=== PATIENT | female | born 2000 | race Caucasian/White ===

== ENCOUNTER 2018-07-05 07:57 | Emergency (ER) | payer BC ==
[2018-07-05] MEDS ORDERED: KETOROLAC 30 MG/ML INJ ONE (08:31)
[2018-07-05] MEDS ORDERED: DEXAMETHASONE 10 MG/ML VIAL ONE (08:31)
[2018-07-05] MEDS ORDERED: NA CHLORIDE 0.9% 1,000 ML ONE (08:32)
[2018-07-05] MEDS ORDERED: ONDANSETRON 4 MG/2 ML VIAL ONE (08:43)
--- NOTE | 2018-07-05 10:06 | ER ---
Nurse's Notes [facility] Name: Fe Kramer Age: 18 yrs Sex: Female : 2000 Arrival Date: 07/05/2018 Time: 08:01 Bed 19 Private MD: Diagnosis: Infectious mononucleosis;Dehydration Presentation: 07/05 08:09 Presenting complaint: Patient states: presenting with throat pain and right sided pc1 abdominal pain. Transition of care: patient was not received from another setting of care. Onset of symptoms was June 27, 2018. Risk Assessment: Do you want to hurt yourself or someone else? Patient reports no desire to harm self or others. Initial Sepsis Screen: Does the patient meet any 2 criteria? No. Patient's initial sepsis screen is negative. Does the patient have a suspected source of infection? No. Patient's initial sepsis screen is negative. Care prior to arrival: None. 08:09 Method Of Arrival: Ambulatory pc1 08:26 Acuity: HARRIETT 4 jl7 Triage Assessment: 08:11 General: Appears uncomfortable, obese, well groomed, Behavior is calm, cooperative. pc1 Pain: Complains of pain in Throat Pain does not radiate. Pain currently is 7 out of 10 on a pain scale. Pain began Last Tuesday Is continuous, Alleviated by nothing. EENT: Oral mucosa is moist. Throat is pink Reports difficulty swallowing since last Tuesday pain. 08:17 Neuro: Level of Consciousness is awake, alert, obeys commands, Oriented to person, pc1 place, time, situation, Corn Grinder are equal bilaterally Moves all extremities. Full function Gait is steady, Speech is normal. Cardiovascular: Heart tones S1 S2 Capillary refill < 3 seconds Patient's skin is warm and dry. Pulses are 2+ in right radial artery and left radial artery. Respiratory: Airway is patent Respiratory effort is even, unlabored, Respiratory pattern is regular, symmetrical, Breath sounds are clear bilaterally. GI: Abdomen is round non-distended, obese, Bowel sounds present X 4 quads. Abd is soft Abdomen is tender to palpation in right upper quadrant and right lower quadrant. : No signs and/or symptoms were reported regarding the genitourinary system. Derm: No signs and/or symptoms reported regarding the dermatologic system. Musculoskeletal: Circulation, motion, and sensation intact. Range of motion: intact in all extremities. 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 - Social history:: Smoking status: Patient/guardian denies using tobacco, never smoked, Patient/guardian denies using alcohol. - Ebola Screening: : Patient negative for fever greater than or equal to 101.5 degrees Fahrenheit, and additional compatible Ebola Virus Disease symptoms Patient denies exposure to infectious person Patient denies travel to an Ebola-affected area in the 21 days before illness onset No symptoms or risks identified at this time. Screenin:22 Abuse screen: Denies threats or abuse. Denies injuries from another. Nutritional pc1 screening: No deficits noted. Difficulty chewing/swallowing? Yes Has had N/V for 3 or more days. Tuberculosis screening: No symptoms or risk factors identified. Fall Risk None identified. Assessment: 08:20 Reassessment: see triage notes. pc1 09:11 Reassessment: Patient and/or family updated on plan of care and expected duration. Pain pc1 level reassessed. Patient is alert, oriented x 3, equal unlabored respirations, skin warm/dry/pink. Patient states feeling better. Patient states symptoms have improved. Respiratory: Airway is patent Respiratory effort is even, unlabored, Respiratory pattern is regular, symmetrical. 10:00 Reassessment: Patient appears in no apparent distress at this time. No changes from pc1 previously documented assessment. Patient and/or family updated on plan of care and expected duration. Pain level reassessed. Patient is alert, oriented x 3, equal unlabored respirations, skin warm/dry/pink. Vital Signs: 08:17 BP 132 / 90; Pulse 94; Resp 17; Temp 98.3; Pulse Ox 98% on R/A; Weight 99.79 kg; Height pc1 5 ft. 6 in. (167.64 cm); Pain 7/10; 10:31 BP 127 / 79; Pulse 83; Resp 16 S; Pulse Ox 100% on R/A; pc1 08:17 Body Mass Index 35.51 (99.79 kg, 167.64 cm) pc1 ED Course: 08:01 Patient arrived in ED. mr 08:03 Stephanie Linton RN is Primary Nurse. jl7 08:08 Daniel Moses PA is PHCP. jr8 08:08 Gianfranco Cai MD is Attending Physician. jr8 08:22 Patient has correct armband on for positive identification. Bed in low position. Call pc1 light in reach. Side rails up X2. Adult w/ patient. 08:26 Triage completed. jl7 08:26 Arm band placed on right wrist. jl7 08:41 Inserted saline lock: 20 gauge in right antecubital area, using aseptic technique. pc1 09:13 No provider procedures requiring assistance completed. pc1 10:31 IV discontinued, intact, bleeding controlled, No redness/swelling at site. Pressure pc1 dressing applied. Administered Medications: 08:41 Drug: NS 0.9% 1000 ml Route: IV; Rate: 1000 ml; Site: right antecubital; pc1 10:00 Follow up: IV Status: Completed infusion; IV Intake: 1000ml pc1 08:42 Drug: TORadol 15 mg Route: IVP; Site: right antecubital; pc1 09:12 Follow up: Response: No adverse reaction; Marked relief of symptoms pc1 08:43 Drug: Decadron - Dexamethasone 10 mg Route: IVP; Site: right antecubital; pc1 09:13 Follow up: Response: No adverse reaction; Marked relief of symptoms pc1 08:43 Drug: Zofran 4 mg Route: IVP; Site: right antecubital; pc1 09:12 Follow up: Response: No adverse reaction; Marked relief of symptoms; Nausea is decreasedpc1 Intake: 10:00 IV: 1000ml; Total: 1000ml. pc1 Outcome: 10:06 Discharge ordered by . jr8 10:31 Discharged to home ambulatory, with family. pc1 10:31 Condition: stable 10:31 Discharge instructions given to patient, family, Instructed on discharge instructions, follow up and referral plans. medication usage, Demonstrated understanding of instructions, follow-up care, medications, Prescriptions given X 2. 10:33 Patient left the ED. pc1 10:37 Attestation : I agree with everything documented by Theodore Starks, Student Nurse. jl7 Signatures: Arianna Dixon mr AndreinapreetDaniel PA PA jr8 Stephanie Linton RN RN jl7 Cantu, Patrick pc1 Corrections: (The following items were deleted from the chart) 10:37 10:31 Attestation : I agree with everything documented by Theodore Starks, Student Nurse. jl7 pc1
--- NOTE | 2018-07-05 10:06 | EDPHYS ---
Physician Documentation [facility] Name: Fe Kramer Age: 18 yrs Sex: Female : 2000 Arrival Date: 07/05/2018 Time: 08:01 Bed 19 Private MD: ED Physician Gianfranco Cai HPI: 07/05 08:58 This 18 yrs old Female presents to ER via Ambulatory with complaints of Sore jr8 Throat, Vomiting. 08:58 The patient presents with sore throat. The patient describes throat pain as burning, jr8 constant, raw. Onset: The symptoms/episode began/occurred gradually, 1 week(s) ago. Severity of symptoms: At their worst the symptoms were moderate, in the emergency department the symptoms are unchanged. Modifying factors: The symptoms are alleviated by nothing, the symptoms are aggravated by sleeping, swallowing. Associated signs and symptoms: The patient has no apparent associated signs or symptoms. The patient has not experienced similar symptoms in the past. The patient has been recently seen by a physician:. Patient seen and diagnosed with mono. Was given zithromax and amoxil for suspected strep throat as well. has finished antibiotic course but still having sore throat and trouble swallowing. Feels dehydrated. Only urinated twice yesterday . 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 - Social history:: Smoking status: Patient/guardian denies using tobacco, never smoked, Patient/guardian denies using alcohol. - Ebola Screening: : Patient negative for fever greater than or equal to 101.5 degrees Fahrenheit, and additional compatible Ebola Virus Disease symptoms Patient denies exposure to infectious person Patient denies travel to an Ebola-affected area in the 21 days before illness onset No symptoms or risks identified at this time. ROS: 08:58 Eyes: Negative for injury, pain, redness, and discharge, Neck: Negative for injury, jr8 pain, and swelling, Cardiovascular: Negative for chest pain, palpitations, and edema, Respiratory: Negative for shortness of breath, cough, wheezing, and pleuritic chest pain, Abdomen/GI: Negative for abdominal pain, nausea, vomiting, diarrhea, and constipation, Back: Negative for injury and pain, MS/Extremity: Negative for injury and deformity, Skin: Negative for injury, rash, and discoloration, Neuro: Negative for headache, weakness, numbness, tingling, and seizure. 08:58 ENT: Positive for difficulty swallowing, sore throat, Negative for drainage from ear(s), ear pain, rhinorrhea, sinus congestion, difficulty handling secretions, hoarseness. Exam: 08:58 Eyes: Pupils equal round and reactive to light, extra-ocular motions intact. Lids and jr8 lashes normal. Conjunctiva and sclera are non-icteric and not injected. Cornea within normal limits. Periorbital areas with no swelling, redness, or edema. Neck: Trachea midline, no thyromegaly or masses palpated, and no cervical lymphadenopathy. Supple, full range of motion without nuchal rigidity, or vertebral point tenderness. No Meningismus. Cardiovascular: Regular rate and rhythm with a normal S1 and S2. No gallops, murmurs, or rubs. Normal PMI, no JVD. No pulse deficits. Respiratory: Lungs have equal breath sounds bilaterally, clear to auscultation and percussion. No rales, rhonchi or wheezes noted. No increased work of breathing, no retractions or nasal flaring. Abdomen/GI: Soft, non-tender, with normal bowel sounds. No distension or tympany. No guarding or rebound. No evidence of tenderness throughout. Back: No spinal tenderness. No costovertebral tenderness. Full range of motion. Skin: Warm, dry with normal turgor. Normal color with no rashes, no lesions, and no evidence of cellulitis. MS/ Extremity: Pulses equal, no cyanosis. Neurovascular intact. Full, normal range of motion. Neuro: Awake and alert, GCS 15, oriented to person, place, time, and situation. Cranial nerves II-XII grossly intact. Motor strength 5/5 in all extremities. Sensory grossly intact. Cerebellar exam normal. Normal gait. 08:58 ENT: External ear(s): are unremarkable, Ear canal(s): are normal, clear, TM's: are normal, no evidence of bulging, no dullness, no erythema, no fluid levels, no hemotympanum, no rupture, normal bony landmarks, normal mobility, Nose: External nose: no obvious acute abnormality, Nasal septum: is midline, Nasal mucosa: moist, Turbinates: are normal, Mouth: Lips: moist, Oral mucosa: pink and intact, moist, Gums: pink, Tongue: is moist, Posterior pharynx: Airway: patent, Tonsils: bilaterally enlarged, with erythema, with exudate, no ulcerations, Uvula: midline, non-edematous, no erythema, swelling, is not appreciated, erythema, that is moderate, exudate, that is mild, pooling of secretions, is not appreciated. Vital Signs: 08:17 BP 132 / 90; Pulse 94; Resp 17; Temp 98.3; Pulse Ox 98% on R/A; Weight 99.79 kg; Height pc1 5 ft. 6 in. (167.64 cm); Pain 7/10; 10:31 BP 127 / 79; Pulse 83; Resp 16 S; Pulse Ox 100% on R/A; pc1 08:17 Body Mass Index 35.51 (99.79 kg, 167.64 cm) pc1 MDM: 08:15 Patient medically screened. jr8 10:05 Data reviewed: vital signs, nurses notes, and as a result, I will discharge patient. jr8 Data interpreted: Pulse oximetry: on room air is 98 %. Interpretation: normal. Counseling: I had a detailed discussion with the patient and/or guardian regarding: the historical points, exam findings, and any diagnostic results supporting the discharge/admit diagnosis, the need for outpatient follow up, a family practitioner, to return to the emergency department if symptoms worsen or persist or if there are any questions or concerns that arise at home. Response to treatment: the patient's symptoms have markedly improved after treatment, patient is well hydrated. 07/05 08:15 Order name: IV; Complete Time: 09:11 jr8 Administered Medications: 08:41 Drug: NS 0.9% 1000 ml Route: IV; Rate: 1000 ml; Site: right antecubital; pc1 10:00 Follow up: IV Status: Completed infusion; IV Intake: 1000ml pc1 08:42 Drug: TORadol 15 mg Route: IVP; Site: right antecubital; pc1 09:12 Follow up: Response: No adverse reaction; Marked relief of symptoms pc1 08:43 Drug: Decadron - Dexamethasone 10 mg Route: IVP; Site: right antecubital; pc1 09:13 Follow up: Response: No adverse reaction; Marked relief of symptoms pc1 08:43 Drug: Zofran 4 mg Route: IVP; Site: right antecubital; pc1 09:12 Follow up: Response: No adverse reaction; Marked relief of symptoms; Nausea is decreasedpc1 Disposition: 17:13 Co-signature as Attending Physician, Gianfranco Cai MD. rn Disposition: 07/05/18 10:06 Discharged to Home. Impression: Infectious mononucleosis, Dehydration. - Condition is Stable. - Discharge Instructions: Dehydration, Adult, Infectious Mononucleosis. - Prescriptions for Prednisone 20 mg Oral Tablet - take 1 tablet by ORAL route once daily for 5 days; 5 tablet. Zofran ODT 4 mg Oral tablet,disintegrating - place 1 tablet by TRANSLINGUAL route every 8-10 hours As needed; 15 tablet. - Medication Reconciliation Form, Thank You Letter, Antibiotic Education, Prescription Opioid Use, Family Work Release form. - Follow up: Private Physician; When: 2 - 3 days; Reason: Recheck today's complaints, Continuance of care, Re-evaluation by your physician. - Problem is new. - Symptoms have improved. Signatures: Gianfranco Cai MD MD rn Daniel Moses PA PA jr8 Starks, Theodore pc1 Corrections: (The following items were deleted from the chart) 10:06 10:06 07/05/2018 10:06 Discharged to Home. Impression: Infectious mononucleosis. jr8 Condition is Stable. Forms are Medication Reconciliation Form, Thank You Letter, Antibiotic Education, Prescription Opioid Use. Follow up: Private Physician; When: 2 - 3 days; Reason: Recheck today's complaints, Continuance of care, Re-evaluation by your physician. Problem is new. Symptoms have improved. jr8 10:33 10:06 07/05/2018 10:06 Discharged to Home. Impression: Infectious mononucleosis; pc1 Dehydration. Condition is Stable. Forms are Medication Reconciliation Form, Thank You Letter, Antibiotic Education, Prescription Opioid Use. Follow up: Private Physician; When: 2 - 3 days; Reason: Recheck today's complaints, Continuance of care, Re-evaluation by your physician. Problem is new. Symptoms have improved. jr8
== END 2018-07-05 10:33 | disposition home or self-care (01) ==
LOC: ER 07:57
DX: B27.90 Infectious mononucleosis, unspecified without complication (principal); E86.0 Dehydration
CPT/HCPCS: 96361; 96374; 96375; 99283; J1100; J2405; J7030

== ENCOUNTER 2020-08-03 16:06 | Emergency (ER) | payer BC ==
--- OUTSIDE RECORDS SUMMARY | 2020-08-03 16:08 | XMS REPORT | Continuity of Care Document ---
:2000 Author Organization [facility] t Address [address] [place] [id number] Care Team Providers Name Role Phone Gary Spangler NP Attending Clinician Joselyn Butt Attending Clinician Provider, Urgent Care Attending Clinician Unavailable Doctor Unassigned, Name Attending Clinician Unavailable Nadeem Huff DO Attending Clinician Arnaldo Tyler MD Attending Clinician Enedina Strange MD Attending Clinician Juan David GRADY Attending Clinician Problems This patient has no known problems. Allergies, Adverse Reactions, Alerts This patient has no known allergies or adverse reactions. Medications This patient has no known medications. Procedures This patient has no known procedures. Encounters Start End Encounter Admission Attending Care Care Encounter Source Date/Time Date/Time Type Type Clinicians Facility Department ID 2020-07-29 2020-07-29 Emergency [facility] [id number] 18:02:00 19:58:00 Linda Slade [id number] [place] [id number] [place] [id number] 2020-07-12 2020-07-12 Emergency Nathalie Morales [facility] [id number] 20:06:00 21:45:00 Joselyn Slade [id number] [place] [id number] [place] [id number] 2020-07-12 2020-07-12 Urgent Provider, [facility] [id number] 19:33:04 19:53:04 Care [facility] [id number] Care [place] [id number] [place] [id number] [place] [address] 2020-07-12 2020-07-12 Orders Doctor DORITA [id number] 00:00:00 00:00:00 Only Unassigned, VIET [id number] [facility] [id number] 2020-06-24 2020-06-24 Patient Refugio [facility] [id number] 00:00:00 00:00:00 Outreach [facility] [id number] [facility] [id number] [facility] [id number] [facility] 2020-01-02 2020-01-02 Telephone Lainey Tyler [facility] [id number] 00:00:00 00:00:00 [place] [id number] [place] [id number] [facility] [phone] [address] 2019-12-27 2019-12-27 Refill Lainey Tyler [facility] [id number] 00:00:00 00:00:00 Cam [place] [id number] [place] [id number] [facility] [id number] [address] 2019-12-24 2019-12-24 Refill Lainey Tyler [facility] [id number] 00:00:00 00:00:00 Cam [place] [id number] [place] [id number] [facility] [phone] [address] 2019-10-01 2019-10-01 Case Alie [facility] [id number] 00:00:00 00:00:00 Management Megha Slade [id number] [place] [id number] [facility] [phone] [address] 2019-09-27 2019-09-27 [facility] [id number] 00:00:00 00:00:00 Paola Slade [id number] [place] [id number] [facility] [phone] [address] 2019-06-05 2019-06-05 [facility] [id number] 08:07:11 09:02:58 Visit Megha Mcconnell [place] [id number] [place] [id number] [facility] [phone] [address] Results This patient has no known results.
[2020-08-03 16:39] LABS: Urine Blood Negative (Negative); Urine Glucose Negative (Negative); Urine Protein Negative (Negative); Urine Specific Gravity 1.025 (1.005-1.030)
[2020-08-03 16:59] LABS: Absolute Lymphocytes (CBC) 1.6 K/uL (0.7-4.9); Basophils % 0.7 % (0-1.3); Hematocrit 40.8 % (36.0-45.0); Lymphocytes % 22.7 % (15.3-44.8); MPV 9.7 fL (7.6-11.3); RBC Red Blood Cell Count 4.74 M/uL (3.86-4.86)
[2020-08-03] MEDS ORDERED: MORPHINE 4 MG/ML SYR ONE (17:06)
[2020-08-03] MEDS ORDERED: NA CHLORIDE 0.9% 1,000 ML ONE (17:07)
[2020-08-03] MEDS ORDERED: ONDANSETRON 4 MG/2 ML VIAL ONE ×2 (17:07→18:05)
[2020-08-03 17:16] LABS: ALT/SGPT 20 U/L (12-78); AST/SGOT 9 U/L (15-37); Albumin 3.8 g/dL (3.4-5.0); Alkaline Phosphatase 96 U/L (45-117); BUN Blood Urea Nitrogen 8 mg/dL (7-18); Bicarbonate 25 mmol/L (21-32); Bilirubin Direct 0.2 mg/dL (0-0.2); Bilirubin Total 0.5 mg/dL (0.2-1.0); Glucose Level 84 mg/dL (74-106); Lipase 53 U/L (73-393); Potassium 3.8 mmol/L (3.5-5.1); Protein, Total 7.7 g/dL (6.4-8.2); Sodium Level 139 mmol/L (136-145)
--- NOTE | 2020-08-03 17:42 | RAD REPORT ---
EXAM DESCRIPTION: CTAbdomen Pelvis W Contrast - 08/03/2020 5:17 pm CLINICAL HISTORY: Abdominal pain. ABD PAIN COMPARISON: No comparisons TECHNIQUE: Biphasic CT imaging of the abdomen and pelvis was performed with 100 ml non-ionic IV cont rast. All CT scans are performed using dose optimization technique as appropriate and may include automated exposure control or mA/KV adjustment according to patient size. FINDINGS: The lung bases are clear. The liver, spleen, pancreas, adrenal glands and kidneys are within normal limits. No bowel obstruction, free air, free fluid or abscess. Moderate stool is retained throughout the colo n. The appendix is normal. No evidence of significant lymphadenopathy. No suspicious bony findings. IMPRESSION: No acute intra-abdominal or pelvic finding. Significant fecal retention.
--- NOTE | 2020-08-03 18:00 | EDPHYS ---
Physician Documentation [facility] Name: Fe Kramer Age: 20 yrs Sex: Female : 2000 Arrival Date: 08/03/2020 Time: 16:06 Bed 30 Private MD: ED Physician Jose Luis Johnston HPI: 08/03 19:31 This 20 yrs old Female presents to ER via Ambulatory with complaints of kb Abdominal Pain - r/o appendicitis. 19:31 The patient presents with abdominal pain in the left upper quadrant. Onset: The kb symptoms/episode began/occurred just prior to arrival. The symptoms do not radiate. Associated signs and symptoms: Pertinent positives: constipation. The symptoms are described as sharp. Modifying factors: The symptoms are alleviated by nothing, the symptoms are aggravated by nothing. Severity of pain: At its worst the pain was moderate in the emergency department the pain is unchanged. The patient has not experienced similar symptoms in the past. The patient has not recently seen a physician. 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 - Social history:: Smoking status: Patient denies any tobacco usage or history of. ROS: 19:30 Constitutional: Negative for fever, chills, and weight loss, Cardiovascular: Negative kb for chest pain, palpitations, and edema, Respiratory: Negative for shortness of breath, cough, wheezing, and pleuritic chest pain, MS/Extremity: Negative for injury and deformity, Skin: Negative for injury, rash, and discoloration, Neuro: Negative for headache, weakness, numbness, tingling, and seizure. 19:30 Abdomen/GI: Positive for abdominal pain, Negative for nausea, vomiting, and diarrhea. Exam: 19:31 Constitutional: This is a well developed, well nourished patient who is awake, alert, kb and in no acute distress. Head/Face: Normocephalic, atraumatic. Cardiovascular: Regular rate and rhythm with a normal S1 and S2. No gallops, murmurs, or rubs. No pulse deficits. Respiratory: Respirations even and unlabored. No increased work of breathing, no retractions or nasal flaring. Skin: Warm, dry with normal turgor. Normal color. MS/ Extremity: Pulses equal, no cyanosis. Neurovascular intact. Full, normal range of motion. Neuro: Awake and alert, GCS 15, oriented to person, place, time, and situation. Moves all extremities. Normal gait. 19:31 Abdomen/GI: Inspection: abdomen appears normal, Bowel sounds: normal, in all quadrants, Palpation: soft, in all quadrants, mild abdominal tenderness, in the left upper quadrant and left lower quadrant. Vital Signs: 16:23 BP 112 / 57; Pulse 76; Resp 16 S; Temp 98.3(O); Pulse Ox 100% on R/A; Weight 108.86 kg aa5 (R); Height 5 ft. 5 in. (165.10 cm) (R); 17:40 BP 116 / 65; Pulse 72; Resp 18 S; Pulse Ox 100% on R/A; aa5 16:23 Body Mass Index 39.94 (108.86 kg, 165.10 cm) aa5 MDM: 16:27 Patient medically screened. kb 17:59 Data reviewed: vital signs, nurses notes. Data interpreted: Pulse oximetry: on room air kb is 100 %. Interpretation: normal. Counseling: I had a detailed discussion with the patient and/or guardian regarding: the historical points, exam findings, and any diagnostic results supporting the discharge/admit diagnosis, lab results, radiology results, the need for outpatient follow up, a family practitioner, to return to the emergency department if symptoms worsen or persist or if there are any questions or concerns that arise at home. 08/03 16:37 Order name: Basic Metabolic Panel kb 08/03 16:37 Order name: CBC with Diff kb 08/03 16:37 Order name: Hepatic Function kb 08/03 16:37 Order name: Lipase; Complete Time: 17:17 kb 08/03 16:38 Order name: Basic Metabolic Panel; Complete Time: 17:17 EDMS 08/03 16:38 Order name: CBC with Automated Diff; Complete Time: 17:22 EDMS 08/03 16:37 Order name: CT Abd/Pelvis - IV Contrast Only; Complete Time: 17:43 kb 08/03 16:38 Order name: Liver (Hepatic) Function; Complete Time: 17:17 EDMS 08/03 16:39 Order name: Urine Dipstick-Ancillary [facility] 08/03 16:50 Order name: Urine --Ancillary (enter results) 08/03 16:37 Order name: IV Saline Lock; Complete Time: 16:52 kb 08/03 16:37 Order name: Labs collected and sent; Complete Time: 16:52 kb 08/03 16:37 Order name: Urine Dipstick-Ancillary (obtain specimen); Complete Time: 16:43 kb 08/03 16:37 Order name: Urine Test (obtain specimen); Complete Time: 16:43 kb Administered Medications: 16:55 Drug: morphine 4 mg Route: IVP; Site: left antecubital; fm2 17:40 Follow up: Response: No adverse reaction aa5 16:55 Drug: Zofran (Ondansetron) 4 mg Route: IVP; Site: left antecubital; fm2 17:40 Follow up: Response: No adverse reaction aa5 16:56 Drug: NS 0.9% 1000 ml Route: IV; Rate: 1000 ml; Site: left antecubital; fm2 17:40 Follow up: IV Status: Completed infusion; IV Intake: 1000ml aa5 17:56 Drug: Zofran (Ondansetron) 4 mg Route: IVP; Site: left antecubital; fm2 18:18 Drug: Magnesium Citrate Liquid 300 ml Route: PO; fm2 Disposition: 08/03/20 17:59 Discharged to Home. Impression: Constipation, unspecified. - Condition is Stable. - Discharge Instructions: High-Fiber Diet, Constipation, Adult, [id number]. - Medication Reconciliation Form, Thank You Letter, Antibiotic Education, Prescription Opioid Use, Work release form form. - Follow up: Emergency Department; When: As needed; Reason: Worsening of condition. Follow up: Private Physician; When: 2 - 3 days; Reason: Recheck today's complaints, Continuance of care, Re-evaluation by your physician. Addendum: 08/06/2020 20:22 Co-signature as Attending Physician, Jose Luis Johnston MD. m a2 Signatures: Dispatcher [employer] [facility] Apurva Dominguez, DANE-C DANE-Briana Toro, RN RN aa5 Jose Luis Johnston MD MD ma2 Lakesiha Prasad Frofel 2 Corrections: (The following items were deleted from the chart) 08/03 18:45 17:59 08/03/2020 17:59 Discharged to Home. Impression: Constipation, unspecified. eb Condition is Stable. Forms are Medication Reconciliation Form, Thank You Letter, Antibiotic Education, Prescription Opioid Use. Follow up: Emergency Department; When: As needed; Reason: Worsening of condition. Follow up: Private Physician; When: 2 - 3 days; Reason: Recheck today's complaints, Continuance of care, Re-evaluation by your physician. kb
--- NOTE | 2020-08-03 18:00 | ER ---
Nurse's Notes [facility] Name: Fe Kramer Age: 20 yrs Sex: Female : 2000 Arrival Date: 08/03/2020 Time: 16:06 Bed 30 Private MD: Diagnosis: Constipation, unspecified Presentation: 08/03 16:23 Chief complaint: Patient states: LLQ pain that began 1 hr ago, reports nausea, denies aa5 vomiting/diarrhea. 16:23 Coronavirus screen: nausea. Ebola Screen: Patient negative for fever greater than or aa5 equal to 101.5 degrees Fahrenheit, and additional compatible Ebola Virus Disease symptoms. Initial Sepsis Screen: Does the patient meet any 2 criteria? No. Patient's initial sepsis screen is negative. Does the patient have a suspected source of infection? No. Patient's initial sepsis screen is negative. Risk Assessment: Do you want to hurt yourself or someone else? Patient reports no desire to harm self or others. Onset of symptoms was August 03, 2020. 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 - Social history:: Smoking status: Patient denies any tobacco usage or history of. Screenin:30 Abuse screen: Denies threats or abuse. Nutritional screening: No deficits noted. aa5 Tuberculosis screening: No symptoms or risk factors identified. Fall Risk None identified. Assessment: 16:30 General: Appears uncomfortable, Behavior is calm, cooperative. Pain: Complains of pain aa5 in left lower quadrant Pain currently is 8 out of 10 on a pain scale. Quality of pain is described as sharp, Is continuous. Neuro: Level of Consciousness is awake, alert, obeys commands, Oriented to person, place, time, situation. Cardiovascular: Patient's skin is warm and dry. Respiratory: Airway is patent Respiratory effort is even, unlabored, Respiratory pattern is regular, symmetrical. GI: Abdomen is round Bowel sounds present X 4 quads. Abd is soft X 4 quads Reports nausea, Patient currently denies diarrhea, vomiting. : No signs and/or symptoms were reported regarding the genitourinary system. EENT: No signs and/or symptoms were reported regarding the EENT system. Derm: Skin is pink, warm \T\ dry. Musculoskeletal: Range of motion: intact in all extremities. 17:40 Reassessment: Patient is alert, oriented x 3, equal unlabored respirations, skin aa5 warm/dry/pink. Patient states feeling better. 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 19:31 Reassessment: Patient is alert, oriented x 3, equal unlabored respirations, skin aa5 warm/dry/pink. Vital Signs: 16:23 BP 112 / 57; Pulse 76; Resp 16 S; Temp 98.3(O); Pulse Ox 100% on R/A; Weight 108.86 kg aa5 (R); Height 5 ft. 5 in. (165.10 cm) (R); 17:40 BP 116 / 65; Pulse 72; Resp 18 S; Pulse Ox 100% on R/A; aa5 16:23 Body Mass Index 39.94 (108.86 kg, 165.10 cm) aa5 ED Course: 16:06 Patient arrived in ED. as 16:23 Arm band placed on Patient placed in an exam room, on a stretcher. aa5 16:27 Apurva Dominguez FNP-C [facility]. kb 16:27 Jose Luis Johnston MD is Attending Physician. kb 16:39 Briana Chou, NII is Primary Nurse. aa5 16:42 Triage completed. 5 16:52 Urine --Ancillary (enter results) Sent. 5 16:52 Urine Dipstick-Ancillary Sent. 5 16:52 CBC with Automated Diff Sent. 5 16:52 Liver (Hepatic) Function Sent. 5 16:52 Basic Metabolic Panel Sent. 5 16:52 Basic Metabolic Panel Sent. [facility] 16:53 Patient has correct armband on for positive identification. Placed in gown. Bed in low 5 position. Call light in reach. Side rails up X 1. Adult w/ patient. Warm blanket given. Pulse ox on. NIBP on. 16:53 CBC with Diff Sent. [facility] 16:53 Hepatic Function Sent. mh5 16:53 Lipase Sent. [facility] 16:53 Initial lab(s) drawn, by ne, sent to lab. Urine collected: clean catch specimen, clear. 5 Inserted saline lock: 20 gauge in left antecubital area, using aseptic technique. Blood collected. 17:17 CT Abd/Pelvis - IV Contrast Only In Process Unspecified. EDMS 18:30 IV discontinued, intact, bleeding controlled, No redness/swelling at site. Pressure fm2 dressing applied. Administered Medications: 16:55 Drug: morphine 4 mg Route: IVP; Site: left antecubital; fm2 17:40 Follow up: Response: No adverse reaction aa5 16:55 Drug: Zofran (Ondansetron) 4 mg Route: IVP; Site: left antecubital; fm2 17:40 Follow up: Response: No adverse reaction aa5 16:56 Drug: NS 0.9% 1000 ml Route: IV; Rate: 1000 ml; Site: left antecubital; fm2 17:40 Follow up: IV Status: Completed infusion; IV Intake: 1000ml aa5 17:56 Drug: Zofran (Ondansetron) 4 mg Route: IVP; Site: left antecubital; fm2 18:18 Drug: Magnesium Citrate Liquid 300 ml Route: PO; fm2 Intake: 17:40 IV: 1000ml; Total: 1000ml. aa5 Outcome: 17:59 Discharge ordered by . kb 18:30 Discharged to home ambulatory. fm2 18:30 Condition: stable 18:30 Discharge instructions given to patient, Instructed on discharge instructions, follow up and referral plans. Demonstrated understanding of instructions, follow-up care. 18:45 Patient left the ED. eb Signatures: Dispatcher [employer] Apurva Dominguez, CERAMIC DESIGNER-C CERAMIC DESIGNER-Sonja Marlow Audri, RN RN 5 Eulalia Mckeon Lakeshia Haney Frofel fm2
[2020-08-03] MEDS ORDERED: MAGNESIUM CITRATE 300 ML BOT ONE (18:32)
[2020-08-03 18:51] VITALS: BP 112/57; TEMP 98.3; O2SAT 100
[2020-08-03 19:05] LABS: Urine Specific Gravity/Preg 1.025 (1.005-1.030)
== END 2020-08-03 18:45 | disposition home or self-care (01) ==
LOC: ER 16:06
DX: K59.00 Constipation, unspecified (principal)
CPT/HCPCS: 85025; 80048; 36415; 81025; 80076; 81003; 83690; 74177; Q9967; J7030; J2405 ×2; 96361; 96374; 96375; 99284